=== PATIENT | male | born 1940 | race Caucasian/White ===

== ENCOUNTER 2024-05-11 09:49 | Emergency (ER) | payer OTHER ==
[2024-05-11] MEDS: Ketorolac 30 MG/ML SDV IM ONE (10:21)
[2024-05-11] MEDS: Orphenadrine 60 MG/2 ML Inj IM ONE (10:22)
== END 2024-05-11 10:51 | disposition home or self-care (01) ==
LOC: LB.ED 09:49
DX: S30.0XXA Contusion of lower back and pelvis, initial encounter (principal); I10 Essential (primary) hypertension; E78.00 Pure hypercholesterolemia, unspecified; Z79.02 Long term (current) use of antithrombotics/antiplatelets; Z79.899 Other long term (current) drug therapy; Z86.73 Personal history of transient ischemic attack (TIA), and cerebral infarction without residual deficits; V91 Other injury due to accident to watercraft; Y93.89 Activity, other specified
CPT/HCPCS: 72100; 96372; 99283; J1885; J2360